=== PATIENT | female | born 1980 | race Caucasian/White ===

== ENCOUNTER → 2020-07-24 | Outpatient (REF) | payer OTHER ==
[2020-07-24 19:09] LABS: MALB URINE SIEMENS 5.9 MG/L
== END ==
LOC: M LAB REF 17:19
PROVIDERS: ATTEND Nurse Practitioner Family
DX: E11.65 Type 2 diabetes mellitus with hyperglycemia (principal)

== ENCOUNTER → 2021-07-30 | Outpatient (REF) | payer OTHER ==
[2021-07-31 14:38] LABS: MALB URINE SIEMENS 17.6 MG/L; MAU/CREAT RATIO 14.3 MCG/MG (0.0-30.0)
== END ==
LOC: M LAB REF 12:56
PROVIDERS: ATTEND Nurse Practitioner Family
DX: E11.65 Type 2 diabetes mellitus with hyperglycemia (principal)

== ENCOUNTER → 2022-09-26 | Outpatient (REF) | payer OTHER ==
[2022-09-26 18:57] LABS: CREATININE, URINE 62.4 MG/DL
[2022-09-26 18:59] LABS: MALB URINE SIEMENS < 3.0 MG/DL; MAU/CREAT RATIO 4.8 MCG/MG (0.0-30.0)
== END ==
LOC: M LAB REF 17:16
PROVIDERS: ATTEND Nurse Practitioner Family
DX: E11.65 Type 2 diabetes mellitus with hyperglycemia (principal)